=== PATIENT | female | born 1980 ===

== ENCOUNTER 2016-12-27 12:32 | Outpatient (CLI) | payer BC ==
[2016-12-27 14:43] LABS: Anion Gap 14 mmol/L (10-20); BUN (Urea Nitrogen) 13 mg/dL (7.0-18.7); Bilirubin, Total 0.9 mg/dL (0.2-1.2); Calc. Creatinine Clearance 0 mL/min (70-130); Calcium 9.1 mg/dL (7.8-10.44); Carbon Dioxide 21 mmol/L (22-29); Chloride 110 mmol/L (98-107); Estimated GFR-MDRD 81; Glucose 80 mg/dL (70-105); Potassium 4.2 mmol/L (3.5-5.1); Sodium 141 mmol/L (136-145)
[2016-12-27 14:44] LABS: #Basophils 0.1 thou/uL (0.0-0.2); #Eosinphils 0.2 thou/uL (0.0-0.7); #Lymphocytes 2.3 thou/uL (1.20-3.40); #Monocytes 0.5 thou/uL (0.11-0.59); #Neutrophils 2.9 thou/uL (1.40-6.50); %Basophils 1.2 % (0.0-1.0); %Lymphocytes 38.9 % (21.0-51.0); %Monocytes 7.6 % (0.0-10.0); %Neutrophils 49.3 % (42.0-75.0); ALT (SGPT) 15 U/L (0-55); AST (SGOT) 15 U/L (5-34); Albumin 4.7 g/dL (3.5-5.0); Alkaline Phosphatase 38 U/L (40-150); Cardiac Risk 4.1 (Less than 4.5); Cholesterol 207 mg/dL (< 200 Desired); Globulin 2.6 g/dL (2.4-3.5); HDL Cholesterol 51 mg/dL (>60 Neg Risk); Hemoglobin 14.6 g/dL (12.0-16.0); LDL Cholesterol, Calculated 142 mg/dL; Mean Platelet Volume 7.9 fL (7.4-10.4); Platelet Count 264 thou/uL (130-400); Protein, Total 7.3 g/dL (6.0-8.3); RBC Distribution Width 11.8 % (11.5-14.5); Red Blood Cell (RBC) Count 4.56 mill/uL (4.20-5.40); Triglycerides 72 mg/dL (Less than 150)
[2016-12-27 14:59] LABS: Thyroid Stimulating Hormone 1.2987 uIU/mL (0.35-4.94); Vitamin D, 25 Hydroxy 24.8 ng/mL (> 30.0)
== END 2016-12-27 12:33 | disposition home or self-care (01) ==
LOC: NAVSJIPCSP 12:32
PROVIDERS: ATTEND Family Medicine
DX: Z00.00 Encounter for general adult medical examination without abnormal findings (principal); R03.0 Elevated blood-pressure reading, without diagnosis of hypertension
CPT/HCPCS: 36415; 80053; 80061; 82306; 84443; 85025